=== PATIENT | female | born 1985 | race Caucasian/White ===

== ENCOUNTER 2018-02-01 17:27 | Emergency (ER) | payer MEDICAID ==
[~2018-02-01] VITALS: Ht 162.6 cm; Wt 104.9 kg
[2018-02-01 17:31] VITALS: Ht 162.6 cm; Wt 104.9 kg
[2018-02-01 18:55] VITALS: BP 159/91
== END 2018-02-01 18:55 | disposition home or self-care (01) ==
LOC: ED 17:27
DX: R07.89 Other chest pain (principal); I10 Essential (primary) hypertension; E11.9 Type 2 diabetes mellitus without complications; J45.909 Unspecified asthma, uncomplicated; F32.9 Major depressive disorder, single episode, unspecified; Z88.8 Allergy status to other drugs, medicaments and biological substances; Z86.59 Personal history of other mental and behavioral disorders; Z86.79 Personal history of other diseases of the circulatory system
CPT/HCPCS: 82962

== ENCOUNTER 2018-04-05 08:02 | Emergency (ER) | payer MEDICAID ==
[~2018-04-05] VITALS: Ht 162.6 cm; Wt 99.3 kg
[2018-04-05 08:07] VITALS: Ht 162.6 cm; Wt 99.3 kg
[2018-04-05 08:44] LABS: BASOPHIL % 0.6 % (0-2); PLATELET COUNT 319 x10^3mcL (130-400)
[2018-04-05 08:49] LABS: RED CELL DISTRIBUTION WIDTH 16.1 % (11.5-14.5)
[2018-04-05 08:50] LABS: CALCIUM 8.3 mg/dL (8.5-10.1); CARBON DIOXIDE 27.4 mmol/L (21-32); CHLORIDE SERUM 105 mmol/L (98-107); CREATININE SERUM 0.7 mg/dL (0.6-1.0); GFR1 > 60 mL/min; GLUCOSE SERUM 194 mg/dL (74-106); POTASSIUM SERUM 4.1 mmol/L (3.5-5.1); SODIUM SERUM 140 mmol/L (136-145)
[2018-04-05 09:33] VITALS: BP 136/79
== END 2018-04-05 09:33 | disposition home or self-care (01) ==
LOC: ED 08:02
PROVIDERS: Emergency Medicine
DX: G62.9 Polyneuropathy, unspecified (principal); J45.909 Unspecified asthma, uncomplicated; I10 Essential (primary) hypertension; E11.9 Type 2 diabetes mellitus without complications; Z88.2 Allergy status to sulfonamides
CPT/HCPCS: 36415

== ENCOUNTER 2018-06-14 10:16 | Emergency (ER) | payer SELFPAY ==
[~2018-06-14] VITALS: Ht 162.6 cm; Wt 95.7 kg
[2018-06-14 10:22] VITALS: Ht 162.6 cm; Wt 95.7 kg
[2018-06-14 11:03] LABS: BASOPHIL % 0.4 % (0-2)
[2018-06-14 11:08] LABS: PLATELET COUNT 448 x10^3mcL (130-400); RED CELL DISTRIBUTION WIDTH 14.9 % (11.5-14.5)
[2018-06-14 11:12] LABS: CALCIUM 8.7 mg/dL (8.5-10.1); CARBON DIOXIDE 27.5 mmol/L (21-32); CHLORIDE SERUM 102 mmol/L (98-107); CREATININE SERUM 0.8 mg/dL (0.6-1.0); GFR1 > 60 mL/min; GLUCOSE SERUM 178 mg/dL (74-106); SODIUM SERUM 137 mmol/L (136-145)
[2018-06-14 11:16] LABS: ALKALINE PHOSPHATASE 62 U/L (46-116); ALT/SGPT 81 U/L (14-59); AST/SGOT 43 U/L (15-37); BILIRUBIN TOTAL 0.6 mg/dL (0.20-1.00)
[2018-06-14 11:17] LABS: ALBUMIN 3.3 g/dL (3.4-5.0); TOTAL PROTEIN, SERUM 8.3 g/dL (6.4-8.2)
[2018-06-14 12:38] VITALS: BP 111/70
== END 2018-06-14 12:38 | disposition home or self-care (01) ==
LOC: ED 10:16
PROVIDERS: Emergency Medicine
DX: J45.901 Unspecified asthma with (acute) exacerbation (principal); F32.9 Major depressive disorder, single episode, unspecified; I10 Essential (primary) hypertension; E11.9 Type 2 diabetes mellitus without complications; Z88.8 Allergy status to other drugs, medicaments and biological substances
CPT/HCPCS: J2930; J7613; J7644; Q0092

== ENCOUNTER 2018-07-02 05:29 | Inpatient (IN) | payer SELFPAY ==
[~2018-07-02] VITALS: Ht 162.6 cm; Wt 97.1 kg
[2018-07-02 06:49] LABS: BASOPHIL % 0.4 % (0-2); PLATELET COUNT 308 x10^3mcL (130-400)
[2018-07-02 06:55] LABS: RED CELL DISTRIBUTION WIDTH 15.4 % (11.5-14.5)
[2018-07-02 07:16] LABS: CALCIUM 8.7 mg/dL (8.5-10.1); CARBON DIOXIDE 26.6 mmol/L (21-32); CHLORIDE SERUM 103 mmol/L (98-107); CREATININE SERUM 0.7 mg/dL (0.6-1.0); GFR1 > 60 mL/min; GLUCOSE SERUM 228 mg/dL (74-106); POTASSIUM SERUM 3.7 mmol/L (3.5-5.1); SODIUM SERUM 135 mmol/L (136-145)
[2018-07-02 07:20] LABS: ALBUMIN 3.4 g/dL (3.4-5.0); ALKALINE PHOSPHATASE 79 U/L (46-116); ALT/SGPT 143 U/L (14-59); AST/SGOT 102 U/L (15-37); BILIRUBIN TOTAL 0.5 mg/dL (0.20-1.00); TOTAL PROTEIN, SERUM 8.2 g/dL (6.4-8.2)
[2018-07-02] MEDS ORDERED: NEU300 PO (07:24)
[2018-07-02] MEDS ORDERED: VENTOLIN H0.09 MG/A1 INH (07:24)
[2018-07-02] MEDS ORDERED: BASAGLAR K100 UNIT/1 (07:24)
[2018-07-02 08:08] VITALS: BP 115/61
[2018-07-02 08:17] LABS: PHOSPHOROUS 3.3 mg/dL (2.5-4.9)
[2018-07-02 08:29] LABS: FREE T4 1.36 ng/dL (0.76-1.46); T3 TOTAL 1.52 ng/mL; T4(THYROXINE) 12.6 ug/dL (4.7-13.3)
[2018-07-02 09:40] VITALS: BP 115/61
[2018-07-02 13:18] LABS: microscopic required? NO
[2018-07-02 13:29] VITALS: BP 112/56
[2018-07-02 13:31] LABS: urine erythrocyte NEGATIVE (NEGATIVE)
[2018-07-02 16:52] VITALS: BP 122/78
[2018-07-02 20:27] VITALS: BP 129/74
[2018-07-03 05:46] VITALS: BP 122/63
[2018-07-03 06:06] LABS: PLATELET COUNT 320 x10^3mcL (130-400)
[2018-07-03 06:37] LABS: CALCIUM 8.8 mg/dL (8.5-10.1); CARBON DIOXIDE 23.5 mmol/L (21-32); CHLORIDE SERUM 104 mmol/L (98-107); CREATININE SERUM 0.7 mg/dL (0.6-1.0); GFR1 > 60 mL/min; GLUCOSE SERUM 271 mg/dL (74-106); MAGNESIUM 2.2 mg/dL (1.8-2.4); PHOSPHOROUS 3.5 mg/dL (2.5-4.9); SODIUM SERUM 137 mmol/L (136-145)
[2018-07-03 07:10] LABS: BASOPHIL % 0 % (0-2); RED CELL DISTRIBUTION WIDTH 15.6 % (11.5-14.5)
[2018-07-03 09:47] VITALS: BP 119/68
[2018-07-03 14:09] VITALS: BP 121/78
== END 2018-07-03 15:20 | disposition left against medical advice (07) | DRG 203 ==
LOC: ED 05:29 → DU 07:14
PROVIDERS: Internal Medicine; Specialist
DX: J45.902 Unspecified asthma with status asthmaticus (principal); F32.9 Major depressive disorder, single episode, unspecified; E11.40 Type 2 diabetes mellitus with diabetic neuropathy, unspecified; F17.210 Nicotine dependence, cigarettes, uncomplicated; F41.9 Anxiety disorder, unspecified; F12.90 Cannabis use, unspecified, uncomplicated; J20.9 Acute bronchitis, unspecified; E11.65 Type 2 diabetes mellitus with hyperglycemia; Z53.21 Procedure and treatment not carried out due to patient leaving prior to being seen by health care provider; J44.9 Chronic obstructive pulmonary disease, unspecified; Z79.4 Long term (current) use of insulin; Z79.899 Other long term (current) drug therapy; Z83.3 Family history of diabetes mellitus; Z82.49 Family history of ischemic heart disease and other diseases of the circulatory system; Z88.8 Allergy status to other drugs, medicaments and biological substances; Z81.8 Family history of other mental and behavioral disorders
CPT/HCPCS: 83880; 84439; 94150; J0171; J2920; J2930; J3475; J7030; J7613; J7620; J7626; J7644; Q0092

== ENCOUNTER 2018-12-16 10:07 | Inpatient (IN) | payer MEDICARE ==
[~2018-12-16] VITALS: Ht 162.6 cm; Wt 99.4 kg
[~2018-12-16 10:07] MED LIST: BASAGLAR K100 UNIT/1; NEU300 PO; VENTOLIN H0.09 MG/A1 INH
[2018-12-16 10:13] VITALS: Ht 162.6 cm; Wt 99.4 kg
--- NOTE | 2018-12-16 10:26 | NUR ---
PT [facility] VIA GURNEY, PT TRANSPORTED TO BED 4. PER MEDIC PT. CALLED 911 FOR SHORTNESS OF BREATH, BREATHING TREATMENT OF ALBUTEROL GIVEN PRIOR TO ARRIVAL. PT STATES SHE HAS HAD TROUBLE BREATHING X 3 DAYS AND A COUGH WITH BROWN MUCUS. PT. REPORTS HISTORY OF ASTHMA AND DM. PT STATES SHE STOPPED TAKING HER ALBUTEROL AND INSULIN X 1 MONTH AGO. PT ADMITS TO IV DRUG USE AND REPORTS LAST USING HEROIN 2 DAYS AGO. ON ASSESSMENT NOTED INSPIRATORY AND EXPERITORY WHEEZING NOTED. PT [id number], PT PLACED ON 10L OF O2 VIA MASK.
--- NOTE | 2018-12-16 11:08 | NUR ---
2ND MED NEB BEGUN BY RT.
--- NOTE | 2018-12-16 11:31 | NUR ---
RT AT BEDSIDE. PT SITTING IN BED, NO S/S OF DISTRESS NOTED.
[2018-12-16 12:12] LABS: BASOPHIL % 0.9 % (0-2); PLATELET COUNT 307 x10^3mcL (130-400); RED CELL DISTRIBUTION WIDTH 14.6 % (11.5-14.5)
[2018-12-16 12:26] LABS: CALCIUM 8.9 mg/dL (8.5-10.1); CARBON DIOXIDE 28.3 mmol/L (21-32); CHLORIDE SERUM 100 mmol/L (98-107); CREATININE SERUM 0.8 mg/dL (0.6-1.0); GFR1 > 60 mL/min; GLUCOSE SERUM 183 mg/dL (74-106); POTASSIUM SERUM 3.7 mmol/L (3.5-5.1); SODIUM SERUM 136 mmol/L (136-145)
[2018-12-16 12:30] LABS: ALKALINE PHOSPHATASE 60 U/L (46-116); ALT/SGPT 99 U/L (14-59); AST/SGOT 61 U/L (15-37); BILIRUBIN TOTAL 0.73 mg/dL (0.20-1.00)
[2018-12-16 12:31] LABS: ALBUMIN 3.2 g/dL (3.4-5.0); TOTAL PROTEIN, SERUM 8.5 g/dL (6.4-8.2)
--- NOTE | 2018-12-16 13:13 | NUR ---
PT SLEEPING IN BED, EASILY AROUSABLE. PT STATES HER PAIN HAS DECREASED TO A 2/10.
[2018-12-16 13:42] VITALS: BP 102/57
--- NOTE | 2018-12-16 13:48 | NUR ---
RECEIVED PT FROM ED VIA ALEKSANDAR. ORIENTED PT TO ROOM AND SURROUNDINGS. IV NOTED TO RH PATENT AND INTACT. TELE 31 PLACED ON PT RADING STA. INSTRUCTED PT ON THE USE OF CALL LIGHT FOR ASSISTANCE. ENDORSED PT TO PRIMARY NURSE ABIGAIL
[2018-12-16 15:37] VITALS: BP 102/57
[2018-12-16 17:00] VITALS: BP 112/66
--- NOTE | 2018-12-16 19:25 | NUR ---
PATIENT RESTING IN BED IN NO ACUTE DISTRESS. PATIENT REMAINS ON 4L NC, BREATHING EVEN AND SLIGHTLY LABORED, DENIES SOB. O2 SAT 94%. PATIENT CARE ENDORSED TO PUBLISHING DIRECTOR NURSE.
--- NOTE | 2018-12-16 20:18 | NUR ---
PT CURRENTLY RESTING IN BED, NO ACUTE DISTRESS. A/O X4. TELE #31 SHOWING SINUS TACHYCARDIA, DENIES CHEST PAIN. PULSES PALPABLE IN ALL EXTREMITIES, NO EDEMA NOTED. LUNG SOUNDS EXPIRATORY WHEEZES BILATERALLY, DENIES SOB. BOWEL SOUNDS ACTIVE, LAST BM 12/16/18. VOIDING WELL. AMBULATORY. SKIN INTACT. IV PATENT AND INTACT. DENIES PAIN AT THIS TIME. C/O ANXIETY, WILL MEDICATE PER EMAR. BED IN LOWEST POSITION, SIDE RAILS UP X2, CALL LIGHT WITHIN REACH. WILL CONTINUE TO MONITOR.
--- NOTE | 2018-12-16 21:00 | NUR ---
PT C/O OF PAIN AND NUMBNESS IN EXTREMITIES AND REQUESTING NICOTINE PATCH. DR HEADLEY INFORMED. RECEIVED ORDERS, MEDICATED PT PER EMAR.
[2018-12-16 21:14] VITALS: BP 114/68
--- NOTE | 2018-12-17 00:47 | NUR ---
PT CURRENTLY RESTING IN BED, NO ACUTE DISTRESS. WILL CONTINUE TO MONITOR.
[2018-12-17 05:38] VITALS: BP 110/69
--- NOTE | 2018-12-17 06:13 | NUR ---
PT SLEPT PERIODICALLY THROUHGOUT NIGHT, NO ACUTE DISTRESS. ALL NEEDS MET AND ATTENDED TO. NO SIGNIFICANT CHANGES. IV PATENT AND INTACT. BED IN LOWEST POSITION, SIDE RAILS UP X2, CALL LIGHT WITHIN REACH. WILL ENDORSE CARE TO ONCOMING NURSE.
[2018-12-17 07:03] LABS: PLATELET COUNT 370 x10^3mcL (130-400)
[2018-12-17 07:06] LABS: BASOPHIL % 0 % (0-2); RED CELL DISTRIBUTION WIDTH 15.1 % (11.5-14.5)
[2018-12-17 07:17] LABS: CALCIUM 9.3 mg/dL (8.5-10.1); CARBON DIOXIDE 25.2 mmol/L (21-32); CHLORIDE SERUM 104 mmol/L (98-107); CREATININE SERUM 0.7 mg/dL (0.6-1.0); GFR1 > 60 mL/min; GLUCOSE SERUM 187 mg/dL (74-106); SODIUM SERUM 139 mmol/L (136-145)
[2018-12-17 09:54] VITALS: BP 106/60
--- NOTE | 2018-12-17 10:00 | NUR ---
PT ON BED, AWAKE, ALERT, AND ORIENTED. HAS NO COMPLAINT OF PAIN, SOB, OR DIZZINESS. RESPONDS WELL TO QUESTION AND ANSWER. EXP. WHEEZES ON 2LNC. SYMMETRICAL CHEST EXPANSION AND UNLABORED. ACTIVE BOWEL SOUNDS NOTED. NON DISTENDED ABDOMEN. SKIN INTACT. SIDE RAILS UP, CALL LIGHT WTIHIN REACH, WILL CONTINUE TO MONITOR. RT PROTOCOL IN PLACE
--- NOTE | 2018-12-17 12:00 | NUR ---
PT'S ACCUCHECK SHOWED 311. 8 UNITS OF REGULAR INSULIN GIVEN COVERAGE
[2018-12-17 12:51] VITALS: BP 110/63
--- NOTE | 2018-12-17 14:10 | NUR ---
PT ON 9L OXYMIZER. PLACED BY RT, WILL CONTINUE TO MONITOR
[2018-12-17 17:20] VITALS: BP 116/65
--- NOTE | 2018-12-18 07:53 | NUR ---
ECHOCARDIOGRAM NOT DONE-DISCHARGED
== END 2018-12-17 17:50 | disposition left against medical advice (07) | DRG 193 ==
LOC: ED 10:07 → DU 12:29
PROVIDERS: Emergency Medicine; ADMIT Internal Medicine
DX: J18.9 Pneumonia, unspecified organism (principal); J96.90 Respiratory failure, unspecified, unspecified whether with hypoxia or hypercapnia; J45.901 Unspecified asthma with (acute) exacerbation; E11.65 Type 2 diabetes mellitus with hyperglycemia; F11.10 Opioid abuse, uncomplicated; I25.10 Atherosclerotic heart disease of native coronary artery without angina pectoris; Z79.4 Long term (current) use of insulin; Z68.37 Body mass index [BMI] 37.0-37.9, adult; F17.210 Nicotine dependence, cigarettes, uncomplicated
CPT/HCPCS: 82962; 90658; 90732; J1956; J2920; J7512; J7613; J7620; J7626; J7644

== ENCOUNTER 2019-11-03 05:16 | Emergency (ER) | payer MEDICAID ==
[~2019-11-03] VITALS: Ht 162.6 cm; Wt 94.3 kg
[2019-11-03 05:19] VITALS: Ht 162.6 cm; Wt 94.3 kg
[2019-11-03 05:35] VITALS: BP 137/88
== END 2019-11-03 05:30 | disposition left against medical advice (07) ==
LOC: ED 05:16
DX: R06.00 Dyspnea, unspecified (principal); J45.909 Unspecified asthma, uncomplicated; E11.9 Type 2 diabetes mellitus without complications; Z88.8 Allergy status to other drugs, medicaments and biological substances